=== PATIENT | female | born 1955 | race African-American/Black ===

== ENCOUNTER 2018-10-14 10:00 | Emergency (ER) | payer SELFPAY ==
[2018-10-14 10:13] VITALS: BP 147/94
--- NOTE | 2018-10-14 10:24 | ER Document Report ---
ED Medical Screen (RME) - General Chief Complaint: Shoulder Pain Stated Complaint: BACK PAIN Time Seen by Provider: 10/14/18 10:20 Mode of Arrival: Ambulatory Information source: Patient Notes: Patient presents today with complaints of left shoulder pain with movement abduction. Denies trauma. No erythema no swelling no warmth. Notes pain with movement only. Also reports bleeding from her left nipple. Noticed this yesterday no history of breast cancer. Last mammogram 5 years ago. I have greeted and performed a rapid initial assessment of this patient. A comprehensive ED assessment and evaluation of the patient, analysis of test results and completion of the medical decision making process will be conducted by additional ED providers. Dictation of this chart was performed using voice recognition software; therefore, there may be some unintended grammatical errors. - Related Data Allergies/Adverse Reactions: No Known Allergies Allergy (Verified 10/14/18 10:02) Physical Exam - Vital signs Vitals: Temp Pulse Resp BP Pulse Ox 98.1 F 97 20 147/94 H 97 10/14/18 10:09 10/14/18 10:09 10/14/18 10:09 10/14/18 10:09 10/14/18 10:09 Course - Vital Signs Vital signs: Temp Pulse Resp BP Pulse Ox 98.1 F 97 20 147/94 H 97 10/14/18 10:09 10/14/18 10:09 10/14/18 10:09 10/14/18 10:09 10/14/18 10:09
--- NOTE | 2018-10-14 10:40 | RADIOLOGY REPORT (SQ) ---
EXAM DESCRIPTION: SHOULDER LEFT 2 OR MORE VIEWS COMPLETED DATE/TIME: 10/14/2018 10:32 am REASON FOR STUDY: Shoulder pain COMPARISON: None. NUMBER OF VIEWS: Three view. TECHNIQUE: Internal rotation, external rotation, and Y view images acquired of the left shoulder. LIMITATIONS: None. FINDINGS: MINERALIZATION: Normal. BONES: No acute fracture or dislocation. No worrisome bone lesions. No significant osteophytes. GLENOHUMERAL JOINT: No significant findings. ACROMIOCLAVICULAR JOINT: No large osteophytes. SOFT TISSUES: No calcifications. VISUALIZED RIBS, SPINE, AND LUNG: No other significant finding. OTHER: No other significant finding. IMPRESSION: NEGATIVE STUDY OF THE LEFT SHOULDER. NO EXPLANATION FOR PAIN. TECHNICAL DOCUMENTATION: JOB ID: [id number] [employer]- All Rights Reserved Reading location - IP/workstation name: [email or web address]
--- NOTE | 2018-10-14 11:35 | ER Document Report ---
ED Extremity Problem, Upper - General Chief Complaint: Shoulder Pain Stated Complaint: BACK PAIN Time Seen by Provider: 10/14/18 10:20 Mode of Arrival: Ambulatory Notes: Otherwise healthy 63-year-old female with arthritis presents to the emergency department with chief complaint of left shoulder pain and bleeding from her left nipple. She says the shoulder pain has been ongoing and intermittent for about 1 month and she can only actively abduct to about 90 degrees before the pain stops her. She has associated paresthesias, tingling, burning pain that goes through her fingers. She has not noticed any swollen lymph nodes in the area. The bleeding in her nipple started yesterday prompting her to seek treatment in the emergency department. She does not have a primary doctor but gets seen at the [facility]. She denies fevers, chills, vision changes, confusion, altered mental status, shortness of breath or chest pain, abdominal pain, nausea or vomiting, redness or swelling of her shoulder joint. - Related Data Allergies/Adverse Reactions: No Known Allergies Allergy (Verified 10/14/18 10:02) Past Medical History - General Information source: Patient - Social History Smoking Status: Never Smoker Chew tobacco use (# tins/day): No Frequency of alcohol use: Social Drug Abuse: None Family History: None Patient has suicidal ideation: No Patient has homicidal ideation: No Renal/ Medical History: Denies: Hx Peritoneal Dialysis Musculoskeletal Medical History: Reports Hx Arthritis Past Surgical History: Reports: Hx Section - x3 Review of Systems - Review of Systems Constitutional: See HPI EENT: See HPI Cardiovascular: See HPI Respiratory: See HPI Gastrointestinal: See HPI Genitourinary: See HPI Skin: See HPI Hematologic/Lymphatic: See HPI Neurological/Psychological: See HPI Physical Exam - Vital signs Vitals: Temp Pulse Resp BP Pulse Ox 98.1 F 97 20 147/94 H 97 10/14/18 10:09 10/14/18 10:09 10/14/18 10:10/14/18 10:10/14/18 10:09 - Notes Notes: PHYSICAL EXAMINATION: Reviewed vital signs and charting by MARICEL GENERAL: Well-appearing, well-nourished and in no acute distress. HEAD: Atraumatic, normocephalic. No scalp deformity, depression, or crepitance. EYES: Pupils are 3 mm and equal/round/reactive to light, extraocular movements intact, sclera anicteric, conjunctiva are normal. ENT: Nares patent bilaterally, oropharynx clear without exudates or palatal petechia. Moist mucous membranes. No tonsil hypertrophy. NECK: Normal range of motion, supple without lymphadenopathy. LUNGS: Breath sounds present, equal, and clear to auscultation bilaterally. No wheezes, rales, or rhonchi. HEART: Regular rate and rhythm without murmurs, rubs, or gallops. 2+ peripheral pulses. Normal capillary refill. ABDOMEN: Soft, nontender, nondistended. Normoactive bowel sounds. No guarding, no rebound. No masses appreciated. BACK: Normal contour, no midline tenderness. Rectal exam deferred. PELVC: Deferred. EXTREMITIES: Limited range of motion with active abduction of the left shoulder to 90 degrees, I am able to passively raise her shoulder in abduction to 150 degrees but she has pain. No palpable axillary lymphadenopathy. NEUROLOGICAL: No focal neurological deficits. Cranial nerves III-XII grossly intact. Moves all extremities spontaneously and on command. PSYCH: Normal mood, normal affect. No suicidal thoughts/ideations. No homocidal thoughts/ideations. No hallucinations. SKIN: Warm, dry, normal turgor, evidence of prior bleeding coming out of the left nipple as it is scabbed but no active bleeding at this time. Course - Re-evaluation Re-evalutation: 10/14/18 11:35 Patient with acute on chronic left shoulder pain but with new potential pathologic nipple discharge. Unclear what the etiology is but patient will need a mammogram and we need to treat this as cancer until proven otherwise. I am instructing the patient to follow-up with her primary care doctor tomorrow. At this time she is afebrile, has a normal distal neurovascular exam of the left arm. I have given her strict return precautions. - Vital Signs Vital signs: Temp Pulse Resp BP Pulse Ox 98.1 F 97 20 147/94 H 97 10/14/18 10:09 10/14/18 10:10/14/18 10:09 10/14/18 10:10/14/18 10:09 Discharge - Discharge Clinical Impression: Nipple discharge, bloody Left shoulder pain Qualifiers: Chronicity: acute Qualified Code(s): M25.512 - Pain in left shoulder Condition: Good Disposition: HOME, SELF-CARE Additional Instructions: You are seen in the emergency department this morning for abnormal nipple discharge of the left nipple. It is unclear why this is occurring but you need a mammogram urgently. Please understand that we need to take this matter seriously and you need to go to the [facility] tomorrow to set up an appointment for the mammogram. It is unclear why you are having the shoulder pain as it could or could not be related to the nipple discharge but right now we do not know that. It could be related to your arthritis and you may have some inflammation given you the symptoms. Regardless, you need to follow-up with your primary. If you develop high fever, acute weakness or left arm, you have paralysis of your left arm, you have severe chest pain or shortness of breath, Referrals: [facility] [Provider Group] - Follow up tomorrow
== END 2018-10-14 11:53 | disposition home or self-care (01) ==
LOC: ER 10:00
DX: M25.512 Pain in left shoulder (principal); G89.29 Other chronic pain; N64.59 Other signs and symptoms in breast; R20.2 Paresthesia of skin
CPT/HCPCS: 99283